=== PATIENT | female | born 1985 | race Caucasian/White ===

== ENCOUNTER → 2017-11-10 14:46 | Outpatient (CLI) | payer MEDICAID ==
[2010-10-07 10:31] VITALS: BMI 32.5
== END | disposition home or self-care (01) ==
LOC: D.MRI 14:46
DX: M54.5 Low back pain (principal)

== ENCOUNTER 2018-06-15 10:00 | Day surgery (SDC) | payer MEDICAID ==
[2018-06-14 14:42] LABS: BASOPHILS 0.4 % (0-2); EOSINOPHILS 1.7 % (0-7); HEMATOCRIT 39.9 % (36.0-48.0); HEMOGLOBIN 13.7 g/dL (12-16); IMMATURE GRANULOCYTES 0.1 % (0-5); LYMPHOCYTES 29.4 % (15-50); MCH 33.3 pg (26.0-34.0); MCHC 34.3 g/dL (31.0-37.0); MCV 96.8 fL (80.0-100.0); MEAN PLATELET VOLUME 11.2 fL (7.4-10.4); MONOCYTES 7.7 % (2-11); NEUTROPHILS 60.7 % (40-80); RBC 4.12 10x6/uL (4.00-5.40); WBC 7.6 10x3/uL (4.8-10.8)
[2018-06-14 14:43] LABS: PLATELET COUNT 270 10x3/uL (130-400)
[~2018-06-15] VITALS: Ht 208.3 cm; Wt 77.1 kg
[2018-06-15] MEDS ORDERED: ULTRAM50 MG PO (11:08)
[2018-06-15] MEDS ORDERED: FLAGYL500 MG PO (11:08)
[2018-06-15 11:20] VITALS: BP 121/78; Ht 208.3 cm; Wt 77.1 kg
[2018-06-15 11:22] LABS: HCG URINE NEGATIVE (NEGATIVE)
--- NOTE | 2018-06-15 13:14 | NUR ---
NOVASURE 1:39
--- NOTE | 2018-06-15 15:43 | NUR ---
PATIENT COMPLAINS OF WORSENING ABDOMINAL CRAMPING. STATES "THIS IS JUST LIKE WHAT MY PERIODS ARE LIKE." OXYCODONE GIVEN PER EMAR
[2018-06-15] MEDS ORDERED: IBUPROFEN800 MG PO (15:48)
[2018-06-15] MEDS ORDERED: HYDROCODON-ACE1 EAC7 PO (15:48)
--- NOTE | 2018-06-15 16:00 | NUR ---
PATIENT STATES CRAMPS ARE NOT MUCH BETTER BUT ARE NOT WORSE. WANTS TO BE DISCHARGED. COMPLAINS OF SOME NAUSEA BUT IS EATING A POPSICLE AND DOESN'T WANT TO WAIT ON NAUSEA MEDICINE BUT WANTS TO BE DISCHARGED. DISCHARGE ISNTRUCTIONS REVIEWED AND PATIENT DISCHARGED HOME VIA WHEELCHAIR TO PRIVATE VEHICLE WITH MOTHER
--- NOTE | 2018-06-16 08:14 | OP ---
PATIENT NAME: CLAUDETTE BANERJEE MEDICAL RECORD: [id number] :84 LOCATION:D.OPS ADMISSION DATE: SURGEON: COY MONTERROSO MD DATE OF OPERATION: 06/15/2018 PREOPERATIVE DIAGNOSIS: Dysfunctional uterine bleeding. POSTOPERATIVE DIAGNOSIS: Dysfunctional uterine bleeding. PROCEDURE: 1. Dilation and curettage with hysteroscopy. 2. Uterine ablation using NovaSure. SURGEON: Coy Monterroso MD MAGNETIC [employer]ONANCE IMAGING COORDINATOR: Caty Delgado. ANESTHESIOLOGIST: Dr. Rayo ANESTHETIC: General. FINDINGS: Uterus sounds to 8 cm. At the time of hysteroscopy, the lining was noted to be shaggy without any obvious evidence of polyp or fibroid. The cervix is unremarkable. SPECIMENS REMOVED: Endometrial curettings. SPECIMEN DISPOSITION: Pathology. ESTIMATED BLOOD LOSS: Minimal. FLUIDS: 1 liter lactated Ringer's. URINE OUTPUT: Quantity sufficient void prior to this procedure. COMPLICATIONS: None. DRAINS: None. INDICATIONS: The patient is a 32-year-old female with no future fertility desired with heavy bleeding. The patient has tried conservative therapy without relief of symptoms and desires more aggressive treatment of her dysfunctional bleeding. DESCRIPTION OF PROCEDURE: After informed consent was assured, the patient was taken to the operating room where anesthetic was obtained. The patient was placed in [facility] and prepped and draped. Speculum was introduced in the vagina and the cervix grasped with a single tooth tenaculum and dilated to accommodate a 4 mm hysteroscope. This is passed with normal saline as distention media. The uterine cavity was visualized with the above findings. Following the hysteroscopy, the cervix was further dilated to accommodate a #1 curette. A sharp curettage was performed with good cry throughout. Specimens removed and sent to pathology. The uterine sound is now performed. The uterus sounded to 9 cm. The device is deployed inside the uterus and within length entered into the device. After a successful test sequence, therapy is initiated OPERATIVE REPORT [id number] CLAUDETTE BANERJEE and completed in 1 minute and 31 seconds. The device is now removed. The speculum was removed from the patient's pelvis and the patient was taken down from the stirrups, went to the recovery room in stable condition. TRANSINT:[id number] Voice Confirmation ID: [id number] DOCUMENT ID: [id number] COY MONTERROSO MD at 0814 CC: [id number] DICTATION DATE: 06/15/18 1327 ROOFER: 06/15/18 1645 [facility] [place] 06/15/18 [place] [id number] [place] [address]
== END 2018-06-15 16:00 | disposition home or self-care (01) ==
LOC: D.OPS 10:00 → D.PAN 12:00 → D.OPS 16:00
PROVIDERS: Obstetrics & Gynecology
DX: N93.8 Other specified abnormal uterine and vaginal bleeding (principal); Z01.812 Encounter for preprocedural laboratory examination